=== PATIENT | female | born 1970 | race Two or more races ===

== ENCOUNTER → 2022-07-14 | Outpatient (CLI) | payer OTHER | LOC: M WHC 11:30 | PROVIDERS: ATTEND Family Medicine | DX: Z12.31 Encounter for screening mammogram for malignant neoplasm of breast (principal) ==

== ENCOUNTER → 2024-09-15 | Outpatient (CLI) | payer OTHER | LOC: M WHC 14:19 | PROVIDERS: ATTEND Nurse Practitioner Primary Care | DX: Z12.31 Encounter for screening mammogram for malignant neoplasm of breast (principal); R92.343 Mammographic extreme density, bilateral breasts ==

== ENCOUNTER 2024-11-16 09:12 | Day surgery (SDC) | payer OTHER ==
[~2024-11-16] VITALS: Ht 152.4 cm; Wt 56.5 kg
[~2024-11-16 09:12] MED LIST: LEVO75TA4 PO; MIDAZOLAM INJ 2MG/2ML VIAL As Ordered ONE; PHENYLEPHRINE 10% OPHTH SOL 5ML OD PRN; fentaNYL 100 MCG/2 ML INJECTION As Ordered ONE
[2024-11-16] MEDS: OFLOXACIN 0.3 % (OCUFLOX) OPTH SOL 5ML OD ONE (10:42)
[2024-11-16] MEDS: LIDOCAINE 3.5 % 1ML OPHTH TOPICAL GEL OU ONE (10:42)
[2024-11-16] MEDS: CYCLOPENTOLATE 1% OPHTH SOLN 2ML BTL OD SCH (10:43)
[2024-11-16] MEDS: PHENYLEPHRINE 2.5% OPHTH SOL 2ML OD SCH (10:43)
[2024-11-16] MEDS: TROPICAMIDE 1% OPHTH SOLN 15ML OD SCH (10:44)
[2024-11-16] MEDS: LIDOCAINE 1% SDV 5ML VIAL As Ordered ONE (12:45)
[2024-11-16] MEDS: CEFUROXIME 1MG/0.1ML INTRACAMERAL INJ As Ordered ONE (12:45)
[2024-11-16] MEDS: BSS IRRIG/VANCO(10MG)/TOBRA(5MG)/EPINEPH(1:1000-0.5CC)500ML BAG-ORONLY As Ordered ONE (12:46)
[2024-11-16 12:55] VITALS: BP 172/69; TEMP 97.2; O2SAT 99
== END 2024-11-16 13:13 | disposition home or self-care (01) ==
LOC: M SDC 09:12
PROVIDERS: ATTEND Ophthalmology
DX: H25.11 Age-related nuclear cataract, right eye (principal); E03.9 Hypothyroidism, unspecified; Z79.890 Hormone replacement therapy
CPT/HCPCS: 66984; J0697; J2250; J3010; V2632

== ENCOUNTER 2024-11-23 08:13 | Day surgery (SDC) | payer OTHER ==
[~2024-11-23] VITALS: Ht 152.4 cm; Wt 58.6 kg
[~2024-11-23 08:13] MED LIST changes: -PHENYLEPHRINE 10% OPHTH SOL 5ML OD PRN; +PHENYLEPHRINE 10% OPHTH SOL 5ML OS PRN; -fentaNYL 100 MCG/2 ML INJECTION As Ordered ONE
[2024-11-23] MEDS: PHENYLEPHRINE 2.5% OPHTH SOL 2ML OS SCH (08:51)
[2024-11-23] MEDS: OFLOXACIN 0.3 % (OCUFLOX) OPTH SOL 5ML OS ONE (08:51)
[2024-11-23] MEDS: LIDOCAINE 3.5 % 1ML OPHTH TOPICAL GEL OU ONE (08:51)
[2024-11-23] MEDS: TROPICAMIDE 1% OPHTH SOLN 15ML OS SCH (08:51)
[2024-11-23] MEDS: CYCLOPENTOLATE 1% OPHTH SOLN 2ML BTL OS SCH (08:51)
[2024-11-23] MEDS: LIDOCAINE 1% SDV 5ML VIAL As Ordered ONE (09:43)
[2024-11-23] MEDS: BSS IRRIG/VANCO(10MG)/TOBRA(5MG)/EPINEPH(1:1000-0.5CC)500ML BAG-ORONLY As Ordered ONE (09:43)
[2024-11-23] MEDS: CEFUROXIME 1MG/0.1ML INTRACAMERAL INJ As Ordered ONE (09:43)
[2024-11-23 10:04] VITALS: BP 110/76; TEMP 97.6; O2SAT 98
== END 2024-11-23 10:14 | disposition home or self-care (01) ==
LOC: M SDC 08:13
PROVIDERS: ATTEND Ophthalmology
DX: H25.12 Age-related nuclear cataract, left eye (principal); E03.9 Hypothyroidism, unspecified; Z79.899 Other long term (current) drug therapy; Z98.41 Cataract extraction status, right eye
CPT/HCPCS: 66984; J0697; J2250; V2632